=== PATIENT | male | born 1950 | race Caucasian/White ===

== ENCOUNTER 2017-11-29 17:12 | Emergency (ER) | payer OTHER ==
[~2017-11-29] VITALS: Ht 177.8 cm; Wt 70.3 kg
[~2017-11-29 17:12] MED LIST: ALBIPROI; ALBIPROI INH; ALBU90OI; AMBIEN CR; AZIT250 PO; BISA5EC PO; CEFU500 PO; CLON.5 PO; COMBIVENT RESPIM4 GM INH; CYCL10; DEXA4; EZET10 PO; FLUSAL1005; FLUSAL2505; HYDACE10B PO; HYDGUAL120; HYDMOR2 PO; MELO7.5; METH10 PO; MULVITA PO; NAPR220 PO; OXYACE5C; PROM25 PO; RANI150; TIZA4; TIZA4 PO; TOCO400 PO; TRAM50; TRAM50 PO; VALD10; ZOLP5 PO; glucosamine/chondroi
[2017-11-29] MEDS ORDERED: MELO7.5 PO (17:17)
[2017-11-29] MEDS ORDERED: CRUTCH4 XX (18:12)
== END 2017-11-29 18:26 | disposition home or self-care (01) ==
LOC: ER 17:12
DX: S93.402A Sprain of unspecified ligament of left ankle, initial encounter (principal); Z88.8 Allergy status to other drugs, medicaments and biological substances; Z88.6 Allergy status to analgesic agent; Z79.899 Other long term (current) drug therapy; W17.89XA Other fall from one level to another, initial encounter
CPT/HCPCS: 29515; 73610; 99283; L1906

== ENCOUNTER 2019-01-28 10:43 | Emergency (ER) | payer OTHER ==
[~2019-01-28] VITALS: Ht 177.8 cm; Wt 72.6 kg
[~2019-01-28 10:43] MED LIST changes: +CRUTCH4 XX; +MELO7.5 PO
[2019-01-28] MEDS ORDERED: Ultram50 MG PO (11:52)
[2019-01-28] MEDS ORDERED: BACL10 PO (11:53)
== END 2019-01-28 15:35 | disposition home or self-care (01) ==
LOC: ER 10:43
DX: S40.012A Contusion of left shoulder, initial encounter (principal); S00.83XA Contusion of other part of head, initial encounter; J45.909 Unspecified asthma, uncomplicated; Z88.8 Allergy status to other drugs, medicaments and biological substances; W19.XXXA Unspecified fall, initial encounter
CPT/HCPCS: 70450; 70486; 71046; 72125; 73030; 96374; 96375; 99284-25; J2405; J3010

== ENCOUNTER 2020-08-20 08:35 | Day surgery (SDC) | payer OTHER ==
[~2020-08-20] VITALS: Ht 177.8 cm; Wt 74.0 kg
[~2020-08-20 08:35] MED LIST changes: +ASCO500 PO; +BACL10 PO; +Calcium + Vita1 EACH PO; +Cephalexin500 MG PO; +DULCOLAX5 MG PO; +HYDR1TAB94 PO; +MAGNESIUM GLU27.5 M1 PO; +Ultram50 MG PO
--- NOTE | 2020-08-20 09:12 | NUR ---
08/20/20 0912 NICHOLAS LEONARD ONE ATTEMPT JOSE IN RH MISSED ONE ATTEMPT BY JOSE IN RFA UNSUCCESSFUL ONE SUCCESSFUL BY RN IN RFA PT TOW
== END 2020-08-20 10:57 | disposition home or self-care (01) ==
LOC: ORSCSDS 08:35
PROVIDERS: Internal Medicine Gastroenterology
PROC: 0DBN8ZX Excision of Sigmoid Colon, Via Natural or Artificial Opening Endoscopic, Diagnostic (ICD-10-PCS; principal; 2020-08-20 10:00)
PROC: 0DBM8ZX Excision of Descending Colon, Via Natural or Artificial Opening Endoscopic, Diagnostic (ICD-10-PCS; principal; 2020-08-20 10:00)
DX: Z12.11 Encounter for screening for malignant neoplasm of colon (principal); Z86.010 Personal history of colon polyps; Z80.0 Family history of malignant neoplasm of digestive organs; D12.4 Benign neoplasm of descending colon; D12.5 Benign neoplasm of sigmoid colon; K57.30 Diverticulosis of large intestine without perforation or abscess without bleeding; J45.909 Unspecified asthma, uncomplicated; Z79.899 Other long term (current) drug therapy
CPT/HCPCS: 88305; J2704; J7120

== ENCOUNTER 2024-07-29 07:34 | Day surgery (SDC) | payer OTHER ==
[~2024-07-29] VITALS: Ht 177.8 cm; Wt 71.7 kg
[2024-07-29] MEDS ORDERED: propofoL 40 ML IV ONE (07:55)
[2024-07-29] MEDS ORDERED: Lactated Ringer's 1,000 ML IV ONE ×2 (07:55→09:00)
[2024-07-29] MEDS ORDERED: GABA100 (08:42)
[2024-07-29] MEDS ORDERED: propofoL 20 ML IV ONE (09:38)
[2024-07-29 10:25] VITALS: BP 129/67
--- NOTE | 2024-07-29 10:45 | NUR ---
07/29/24 1045 Sumit Lockhart PT HAD DIFFICULTY FINDING RIDE HOME. PT [facility]ARA COULD GIVE NON-EMERGENCY TRANSPORT BUT PT HAD TO WAIT FOR UP TO 3 HOURS. PT STATES HE DOES NOT WANT THAT. PT CALLED [facility] AND SAID WILL BE PICKING HIM UP IN 15-20 MIN. STAFF WILL MAKE SURE PT RIDES WITH BROTHER KARI. 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
== END 2024-07-29 10:13 | disposition home or self-care (01) ==
LOC: ORSCSDS 07:34
PROVIDERS: Surgery
PROC: 0DJD8ZZ Inspection of Lower Intestinal Tract, Via Natural or Artificial Opening Endoscopic (ICD-10-PCS; principal; 2024-07-29 09:00)
DX: Z12.11 Encounter for screening for malignant neoplasm of colon (principal); K57.30 Diverticulosis of large intestine without perforation or abscess without bleeding; Z86.0101 Personal history of adenomatous and serrated colon polyps; Z80.0 Family history of malignant neoplasm of digestive organs; Z85.46 Personal history of malignant neoplasm of prostate; I10 Essential (primary) hypertension; Z79.899 Other long term (current) drug therapy
CPT/HCPCS: J2704; J7120

== ENCOUNTER → 2025-04-26 | Outpatient (CLI) | payer OTHER ==
[~2025-04-26] MED LIST changes: +GABA100
[2025-05-01 09:40] LABS: O-DESMETHYLTRAMADOL,URN, QUANT 1760 ng/mL; TRAMADOL, URN, QUANT 9590 ng/mL
== END ==
LOC: LAB SHORT 15:15 → LAB 15:15
PROVIDERS: Physician Assistant Medical
DX: G89.4 Chronic pain syndrome (principal); Z79.899 Other long term (current) drug therapy
CPT/HCPCS: G0480